=== PATIENT | female | born 1965 | race African-American/Black ===

== ENCOUNTER 2020-01-04 19:03 | Emergency (ER) | payer OTHER ==
[2020-01-04 19:17] VITALS: BP 143/95; PULSE 70; TEMP 98.3; BMI 24.2
--- NOTE | 2020-01-04 19:24 | PDOC ---
Documentation entered by Luis Miguel Becker SCRIBE, acting as scribe for Olya Coy MD. Olya Coy MD: This documentation has been prepared by the Rosita wilson Xhesika, SCRIBE, under my direction and personally reviewed by me in its entirety. I confirm that the documentation accurately reflects all work, treatment, procedures, and medical decision making performed by me. History of Present Illness - General Chief Complaint: Foreign Body (FB) Stated Complaint: COTTON TIP IN RIGHT EAR Time Seen by Provider: 01/04/20 19:07 History Source: Patient Exam Limitations: No Limitations - History of Present Illness Initial Comments: 01/04/20 19:22 The patient is a 54 y/o female with no PMH of who presents to the ED for foreign body in R ear. The patient states she was cleaning her ear with a cotton swab and she believes the cotton tip got stuck in her R ear. PAST MEDICAL HISTORY: no significant history PAST SURGICAL HISTORY: no significant history FAMILY HISTORY: no pertinent history SOCIAL HISTORY: Pt lives with family and is employed. MEDICATIONS: reviewed ALLERGIES: As per nursing notes 01/04/20 19:23 Assessment and plan: This is a 54-year-old female who comes in complaining of a foreign body in her right ear. Patient said she was cleaning her ear with cotton when that cotton tip came off in her ear. However on my exam there was no cotton tip both ears were examined and no cotton in either ear. Patient was reassured that there was no cotton in her ear and discharged. Past History - Past Medical History Allergies/Adverse Reactions: Allergies Allergy/AdvReac Type Severity Reaction Status Date / Time No Known Allergies Allergy Verified 01/04/20 19:05 Home Medications: Ambulatory Orders Letrozole [Femara] 2.5 mg PO DAILY 01/04/20 Losartan Potassium 100 mg PO DAILY 01/04/20 Multivit with Calcium,Iron,Min [One Daily Women's] 1 each PO DAILY 01/04/20 Spironolactone [Aldactone] 25 mg PO DAILY 01/04/20 metFORMIN XR [Glucophage *Xr* -] 750 mg PO DAILY 01/04/20 Review of Systems - Review of Systems Able to Perform ROS?: Yes Comments:: 01/04/20 19:22 General: No fevers or chills, no weakness, no weight loss HEENT: No change in vision. No sore throat,. +foreign body (cotton tip) in R ear CardioVascular: No chest pain or shortness of breath Respiratory:No cough, or wheezing. Gastrointestinal: no nausea, vomiting, diarrhea or constipation, No rectal bleeding Genitourinary: No dysuria, hematuria, or frequency Musculoskeletal: No joint or muscle pain or swelling Neurologic: No headache, vertigo, dizziness or loss of consciousness Psychiatric: nor depression Skin: No rashes or easy bruising Endocrine: no increased thirst or abnormal weight change Allergic: no skin or latex allergy All other systems reviewed and normal *Physical Exam - Vital Signs Last Vital Signs Temp Pulse Resp BP Pulse Ox 98.3 F 70 14 143/95 98 01/04/20 19:05 01/04/20 19:05 01/04/20 19:05 01/04/20 19:05 01/04/20 19:05 - Physical Exam 01/04/20 19:22 GENERAL: The patient is awake, alert, and fully oriented, in no acute distress. HEAD: Normal with no signs of trauma. EYES: Pupils equal, round and reactive to light, extraocular movements intact, sclera anicteric, conjunctiva clear. EARS: No foreign body in either ear EXTREMITIES: Normal range of motion, no edema. NEUROLOGICAL: Normal speech, normal gait. PSYCH: Normal mood, normal affect. SKIN: Warm, Dry, normal turgor, no rashes or lesions noted. Discharge - Discharge Information Problems reviewed: Yes Clinical Impression/Diagnosis: Foreign body of ear, right Qualifiers: Encounter type: initial encounter Qualified Code(s): T16.1XXA - Foreign body in right ear, initial encounter Condition: Good Disposition: HOME - Admission No - Follow up/Referral Referrals: Mili Washington [Primary Care Provider] - - Patient Discharge Instructions Additional Instructions: Return to the emergency department immediately with ANY new, persistent or worsening symptoms. Continue any medications as previously prescribed by your physician. You should follow up with your primary doctor as soon as possible regarding today's emergency department visit. . Please make sure your doctor reviews the results of your emergency evaluation. Thank you for coming to the Emergency Department today for your care. It was a pleasure to see you today. Please note that your evaluation is INCOMPLETE until you follow-up with your doctor. - Post Discharge Activity
== END 2020-01-04 19:26 | disposition home or self-care (01) ==
LOC: FER 19:03
DX: T16.1XXA Foreign body in right ear, initial encounter (principal)
CPT/HCPCS: 99282-25